=== PATIENT | female | born 2000 | race Caucasian/White ===

== ENCOUNTER 2018-01-22 16:42 | Emergency (ER) | payer OTHER ==
[2018-01-22] MEDS ORDERED: Ketorolac Tromethamine 60 MG/2 ML VIAL ONE (17:27)
[2018-01-22] MEDS ORDERED: Ondansetron ODT 4 MG TAB ONE (17:28)
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
== END 2018-01-22 17:52 | disposition home or self-care (01) ==
LOC: ERS 16:42
DX: R51 Headache (principal); R42 Dizziness and giddiness; R11.0 Nausea; F41.9 Anxiety disorder, unspecified; F32.9 Major depressive disorder, single episode, unspecified; Z79.899 Other long term (current) drug therapy; V43.62XA Car passenger injured in collision with other type car in traffic accident, initial encounter
CPT/HCPCS: 70450; 96372; J1885; Q0162